=== PATIENT | female | born 1985 | race Caucasian/White ===

== ENCOUNTER 2016-09-16 01:08 | Inpatient (IN) | payer BC, MEDICAID ==
[~2016-09-16 01:08] MED LIST: IBUPROFEN800 M1 PO; IRON18 M1 PO; METAMUCIL283 GM PO; PRENATAL VITAMI1 TAB PO; TRIPNIP TOP; [UNRECOGNIZED DRUG - OTHER] VG
[2016-09-16] MEDS ORDERED: METAMUCIL660 GM (02:29)
[2016-09-16 04:21] LABS: BASO % 0.1 % (0-2); EOS % 0.3 % (0-7); HCT-HEMATOCRIT 37.8 % (34.0-49.0); HGB-HEMOGLOBIN 12.9 gm/dl (12.0-15.5); IMMATURE GRANULOCYTES ABSOLUTE 0.03 tho/cmm (0-0.03); IMMATURE GRANULOCYTES PERCENT 0.3 % (0-0.3); LYMPH % 10.6 % (20-45); LYMPH ABSOLUTE COUNT 1.2 tho/cmm (0.8-4.5); MCH (MEAN CORPUSCULAR HGB) 30.6 pg (28.0-32.0); MCHC MEAN CORPUSCULAR HGB CONC 34.1 % (32.0-36.0); MCV (MEAN CELL VOLUME) 89.8 fl (82.0-96.0); MEAN PLATELET VOLUME 9.6 cmc (9.4-12.4); MONO % 3.6 % (0-12); MONOCYTE ABSOLUTE COUNT 0.4 tho/cmm (0.0-1.2); NEUTROPHIL ABSOLUTE COUNT 9.5 tho/cmm (1.6-8.0); NEUTROPHIL-AUTOMATED 9.5 tho/cmm (1.6-8.0); NEUTROPHILS % 85.1 % (40-80); PLATELET COUNT 158 tho/cmm (150-450); RED BLOOD COUNT 4.21 mil/cmm (4.00-5.20); RED CELL DISTRIBUTION WIDTH 12.9 % (12.4-16.4); WHITE BLOOD COUNT 11.2 tho/cmm (4.0-10.0)
[2016-09-17 06:24] LABS: BASO % 0.2 % (0-2); EOS % 1.8 % (0-7); EOSINOPHIL ABSOLUTE COUNT 0.2 tho/cmm (0.0-0.7); HCT-HEMATOCRIT 37.2 % (34.0-49.0); HGB-HEMOGLOBIN 12.6 gm/dl (12.0-15.5); IMMATURE GRANULOCYTES ABSOLUTE 0.02 tho/cmm (0-0.03); IMMATURE GRANULOCYTES PERCENT 0.2 % (0-0.3); LYMPH % 30.3 % (20-45); LYMPH ABSOLUTE COUNT 2.8 tho/cmm (0.8-4.5); MCH (MEAN CORPUSCULAR HGB) 30.8 pg (28.0-32.0); MCHC MEAN CORPUSCULAR HGB CONC 33.9 % (32.0-36.0); MEAN PLATELET VOLUME 9.9 cmc (9.4-12.4); MONO % 3.9 % (0-12); MONOCYTE ABSOLUTE COUNT 0.4 tho/cmm (0.0-1.2); NEUTROPHIL ABSOLUTE COUNT 5.8 tho/cmm (1.6-8.0); NEUTROPHIL-AUTOMATED 5.8 tho/cmm (1.6-8.0); NEUTROPHILS % 63.6 % (40-80); PLATELET COUNT 154 tho/cmm (150-450); RED BLOOD COUNT 4.09 mil/cmm (4.00-5.20); RED CELL DISTRIBUTION WIDTH 13.2 % (12.4-16.4); WHITE BLOOD COUNT 9.1 tho/cmm (4.0-10.0)
[2016-09-17] MEDS ORDERED: IBUPROFEN800 M1 PO (23:29)
[2016-09-18] MEDS ORDERED: NORCO 5-325 TA1 EACH PO (09:10)
== END 2016-09-18 09:40 | DRG 775 ==
LOC: LDR 01:08 → OBGE 05:10
PROVIDERS: Anesthesiology; Family Medicine; ADMIT Obstetrics & Gynecology
PROC: 10E0XZZ Delivery of Products of Conception, External Approach (ICD-10-PCS; principal; 2016-09-16)
DX: O80 Encounter for full-term uncomplicated delivery (principal); Z37.0 Single live birth; Z3A.39 39 weeks gestation of pregnancy
CPT/HCPCS: J2590